=== PATIENT | male | born 1955 | race Caucasian/White ===

== ENCOUNTER 2021-02-22 12:15 | Emergency (ER) | payer BC ==
[2021-02-22] MEDS ORDERED: Midazolam 1 MG/ML 2 ML SDV IV ONE (12:16)
[2021-02-22] MEDS ORDERED: Rocuronium 100 MG/10 ML MDV IV ONE (12:16)
[2021-02-22] MEDS ORDERED: Succinylcholine 200 MG/10 ML MDV IV ONE (12:16)
[2021-02-22] MEDS ORDERED: Propofol 200 MG/20 ML SDV IV ONE (12:16)
[2021-02-22] MEDS ORDERED: Sodium Chloride 0.9% 10 ML Syringe FLUSH PRN (12:24)
[2021-02-22] MEDS ORDERED: Sodium Chloride 0.9% 1,000 ML IV SCH ×2 (12:30→14:15)
[2021-02-22] MEDS ORDERED: Midazolam 1 MG/ML 2 ML SDV ONE (12:47)
--- NOTE | 2021-02-22 13:03 | EDM.PDOC ---
ED HPI GENERAL MEDICAL PROBLEM - General Stated Complaint: FALL , SOB Time Seen by Provider: 02/22/21 12:15 Source of Information: Reports: EMS, Family - History of Present Illness INITIAL COMMENTS - FREE TEXT/NARRATIVE: patient is a 65 YO WM who was diagnosed with Covid 19 7 days ago presented to the ED via EMS because of a fall and unresponsive episode. doesn't exactly know for how long he was on the floor. Patient remembered that he was feeling weak, fell on the floor and can't get up so the called 911. Upon EMS arrival at the scene patient was cyanotic, hypoxemic with oxygen saturation of 70's. He was immediately put on a NRB and eventually on CPAP. Upon his arrival in the ED he in respiratory distress and subsequently intubated. - Related Data Allergies Allergy/AdvReac Type Severity Reaction Status Date / Time loratadine [From Claritin] Allergy Blisters Verified 02/22/21 13:01 Home Meds: Home Meds Acetaminophen/oxyCODONE [Percocet 325-5 MG] 1 each PO Q6HR PRN 09/25/14 [History] Calcium Carbonate/Vitamin D3 [Calcium 600-Vit D3 800 Tablet] 1 each PO DAILY 09/25/14 [History] Lisinopril 10 mg PO DAILY 09/25/14 [History] Mometasone Furoate [Elocon 0.1% Crm] 1 applic TOP DAILY PRN 09/25/14 [History] Pravastatin [Pravachol] 10 mg PO DAILY 09/25/14 [History] Pregabalin [Lyrica] 150 mg PO TID 09/25/14 [History] SitaGLIPtin [Januvia] 100 mg PO DAILY 09/25/14 [History] metFORMIN [Glucophage] 1,000 mg PO BIDMEALS 09/25/14 [History] Insulin Detemir [Levemir] 22 unit SUBCUT BEDTIME 03/06/15 [History] Meloxicam [Mobic] 15 mg PO DAILY 03/06/15 [History] Pantoprazole Sodium [Protonix] 40 mg PO DAILY 03/06/15 [History] diphenhydrAMINE [Benadryl] 25 mg PO Q6H PRN 03/06/15 [History] oxyCODONE HCl/Acetaminophen [Percocet 5-325 mg Tablet] 1 each PO ASDIRECTED PRN 03/06/15 [History] Past Medical History Other Dermatologic History: SKIN ALLERGIES ED ROS GENERAL - Review of Systems Review Of Systems: See Below Reason Not Obtained: Unresponsive Constitutional: Reports: No Symptoms HEENT: Reports: No Symptoms Respiratory: Reports: Shortness of Breath Cardiovascular: Reports: No Symptoms Endocrine: Reports: No Symptoms GI/Abdominal: Reports: No Symptoms : Reports: No Symptoms Musculoskeletal: Reports: No Symptoms Skin: Reports: No Symptoms Neurological: Reports: No Symptoms Psychiatric: Reports: No Symptoms ED EXAM, GENERAL - Physical Exam Exam: See Below Exam Limited By: Altered Mental Status General Appearance: Obtunded Ears: Normal External Exam, Normal Canal, Hearing Grossly Normal, Normal TMs Nose: Normal Inspection, Normal Mucosa, No Blood Throat/Mouth: Normal Inspection, Normal Lips, Normal Teeth, Normal Gums Head: Atraumatic, Normocephalic Neck: Normal Inspection, Supple, Non-Tender, Full Range of Motion Respiratory/Chest: Lungs Clear, Respiratory Distress, Decreased Breath Sounds, Rhonchi Cardiovascular: Normal Peripheral Pulses, Regular Rate, Rhythm, No Edema, No Gallop, No JVD, No Murmur GI/Abdominal: Normal Bowel Sounds, Soft, Non-Tender, No Organomegaly, No Distention, No Abnormal Bruit Back Exam: Normal Inspection, Full Range of Motion Extremities: Normal Inspection, Normal Range of Motion, Non-Tender, No Pedal Edema, Normal Capillary Refill Neurological: Alert, Oriented, CN II-XII Intact, Normal Cognition, Normal Reflexes, No Motor/Sensory Deficits Psychiatric: Normal Affect, Normal Mood Skin Exam: Warm #1 Interpretation EKG Date: 02/22/21 Time: 12:52 Rhythm: NSR Rate (Beats/Min): 74 [place]: Normal P-Wave: Present QRS: Normal ST-T: Normal QT: Normal NE/PQ Interval: 158 Comparison: NA - No Prior EKG EKG Interpretation Comments: NSR Non-specific ST and T wave changes Course - Vital Signs Text/Narrative:: Lab/EKG/CXR was reviewed See DUTY MANAGER's note for details on intubation informed of patient's condition [place] Sodium bicarb 8.4 % 50 ml IV x1 Last Recorded V/S: Last Vital Signs Temp 32.0 C L 02/22/21 12:15 Pulse 76 10/26/21 12:15 Resp 22 H 02/22/21 12:15 BP 121/68 02/22/21 12:15 Pulse Ox 87 L 02/22/21 12:15 - Orders/Labs/Meds Orders: Active Orders 24 hr Category Date Time Status Saline Lock Insert [OM.PC] Routine Oth 02/22/21 12:24 Ordered EKG 12 Lead [EK] Routine Ther 02/22/21 12:24 Ordered Labs: Laboratory Tests 02/22/21 02/22/21 02/22/21 Range/Units 12:40 12:40 12:40 WBC 16.9 H (3.2-10.1) x10-3/uL RBC 6.13 H (3.90-5.90) x10(6)uL Hgb 16.2 (12.9-17.7) g/dL Hct 51.0 H (38.3-50.1) % MCV 83.1 (80.8-98.7) fL MCH 26.4 L (27.0-33.3) pg MCHC 31.8 (28.7-35.3) g/dL RDW 15.1 H (12.4-15.0) % Plt Count 307 (117-477) x10(3)uL MPV 8.3 (6.7-11.0) fL Add Manual Diff Yes Neutrophils % (Manual) 81 (46-82) % Band Neutrophils % 6 (0-6) % Lymphocytes % (Manual) 9 L (13-37) % Monocytes % (Manual) 4 (4-12) % PT 16.4 H (9.0-11.1) sec INR 1.57 H (1.00-1.24) APTT 45.8 H (24.4-33.2) SECONDS POC VBG pH (7.32-7.43) pH Units POC VBG pCO2 (41-51) mmHg POC VBG HCO3 (22-29) mmol/L VBG Base Excess (-2 - 3+) mmol/L O2 Delivery Device Oxygen Flow Rate LPM Sodium 125 L (135-145) mmol/L Potassium 4.2 (3.5-5.3) mmol/L Chloride 88 L* (100-110) mmol/L Carbon Dioxide 10 L* (21-32) mmol/L BUN 57 H (7-18) mg/dL Creatinine 2.1 H* (0.70-1.30) mg/dL Est Cr Clr Drug Dosing TNP Estimated GFR (MDRD) 32 L (>60) BUN/Creatinine Ratio 27.1 H (9-20) Glucose 445 H* (80-116) mg/dL Lactic Acid (0.4-2.0) mmol/L Calcium 7.9 L (8.6-10.2) mg/dL Total Bilirubin 0.6 (0.1-1.3) mg/dL AST 85 H (5-25) IU/L ALT 39 H (12-36) U/L Alkaline Phosphatase 97 (56-112) IU/L Troponin I (4.0-60.3) pg/mL NT-Pro-B Natriuret Pep (<=125) pg/mL Total Protein 6.6 (6.0-8.0) g/dL Albumin 2.6 L (3.2-4.6) g/dL Globulin 4.0 g/dL Albumin/Globulin Ratio 0.7 Urine Color (YELLOW) Urine Appearance (CLEAR) Urine pH (5.0-6.5) Ur Specific [place] (1.010-1.025) Urine Protein (NEGATIVE) mg/dL Urine Glucose (UA) (NORMAL) mg/dL Urine Ketones (NEGATIVE) mg/dL Urine Occult Blood (NEGATIVE) Urine Nitrite (NEGATIVE) Urine Bilirubin (NEGATIVE) Urine Urobilinogen (NEGATIVE) mg/dL Ur Leukocyte Esterase (NEGATIVE) Urine RBC (0-5) Urine WBC (0-5) Ur Squamous Epith Cells (NS,R,O) Urine Bacteria (NS) Coarse Granular Casts (NS) 02/22/21 02/22/21 02/22/21 Range/Units 12:40 12:40 12:40 WBC (3.2-10.1) x10-3/uL RBC (3.90-5.90) x10(6)uL Hgb (12.9-17.7) g/dL Hct (38.3-50.1) % MCV (80.8-98.7) fL MCH (27.0-33.3) pg MCHC (28.7-35.3) g/dL RDW (12.4-15.0) % Plt Count (117-477) x10(3)uL MPV (6.7-11.0) fL Add Manual Diff Neutrophils % (Manual) (46-82) % Band Neutrophils % (0-6) % Lymphocytes % (Manual) (13-37) % Monocytes % (Manual) (4-12) % PT (9.0-11.1) sec INR (1.00-1.24) APTT (24.4-33.2) SECONDS POC VBG pH 6.98 L* (7.32-7.43) pH Units POC VBG pCO2 35 L (41-51) mmHg POC VBG HCO3 8 L (22-29) mmol/L VBG Base Excess -23 L (-2 - 3+) mmol/L O2 Delivery Device Cpap Oxygen Flow Rate 0 LPM Sodium (135-145) mmol/L Potassium (3.5-5.3) mmol/L Chloride (100-110) mmol/L Carbon Dioxide (21-32) mmol/L BUN (7-18) mg/dL Creatinine (0.70-1.30) mg/dL Est Cr Clr Drug Dosing Estimated GFR (MDRD) (>60) BUN/Creatinine Ratio (9-20) Glucose (80-116) mg/dL Lactic Acid 2.4 H* (0.4-2.0) mmol/L Calcium (8.6-10.2) mg/dL Total Bilirubin (0.1-1.3) mg/dL AST (5-25) IU/L ALT (12-36) U/L Alkaline Phosphatase (56-112) IU/L Troponin I 19.3 (4.0-60.3) pg/mL NT-Pro-B Natriuret Pep 223 H (<=125) pg/mL Total Protein (6.0-8.0) g/dL Albumin (3.2-4.6) g/dL Globulin g/dL Albumin/Globulin Ratio Urine Color (YELLOW) Urine Appearance (CLEAR) Urine pH (5.0-6.5) Ur Specific [place] (1.010-1.025) Urine Protein (NEGATIVE) mg/dL Urine Glucose (UA) (NORMAL) mg/dL Urine Ketones (NEGATIVE) mg/dL Urine Occult Blood (NEGATIVE) Urine Nitrite (NEGATIVE) Urine Bilirubin (NEGATIVE) Urine Urobilinogen (NEGATIVE) mg/dL Ur Leukocyte Esterase (NEGATIVE) Urine RBC (0-5) Urine WBC (0-5) Ur Squamous Epith Cells (NS,R,O) Urine Bacteria (NS) Coarse Granular Casts (NS) 02/22/21 Range/Units 13:40 WBC (3.2-10.1) x10-3/uL RBC (3.90-5.90) x10(6)uL Hgb (12.9-17.7) g/dL Hct (38.3-50.1) % MCV (80.8-98.7) fL MCH (27.0-33.3) pg MCHC (28.7-35.3) g/dL RDW (12.4-15.0) % Plt Count (117-477) x10(3)uL MPV (6.7-11.0) fL Add Manual Diff Neutrophils % (Manual) (46-82) % Band Neutrophils % (0-6) % Lymphocytes % (Manual) (13-37) % Monocytes % (Manual) (4-12) % PT (9.0-11.1) sec INR (1.00-1.24) APTT (24.4-33.2) SECONDS POC VBG pH (7.32-7.43) pH Units POC VBG pCO2 (41-51) mmHg POC VBG HCO3 (22-29) mmol/L VBG Base Excess (-2 - 3+) mmol/L O2 Delivery Device Oxygen Flow Rate LPM Sodium (135-145) mmol/L Potassium (3.5-5.3) mmol/L Chloride (100-110) mmol/L Carbon Dioxide (21-32) mmol/L BUN (7-18) mg/dL Creatinine (0.70-1.30) mg/dL Est Cr Clr Drug Dosing Estimated GFR (MDRD) (>60) BUN/Creatinine Ratio (9-20) Glucose (80-116) mg/dL Lactic Acid (0.4-2.0) mmol/L Calcium (8.6-10.2) mg/dL Total Bilirubin (0.1-1.3) mg/dL AST (5-25) IU/L ALT (12-36) U/L Alkaline Phosphatase (56-112) IU/L Troponin I (4.0-60.3) pg/mL NT-Pro-B Natriuret Pep (<=125) pg/mL Total Protein (6.0-8.0) g/dL Albumin (3.2-4.6) g/dL Globulin g/dL Albumin/Globulin Ratio Urine Color Yellow (YELLOW) Urine Appearance Slightly cloudy (CLEAR) Urine pH 5.0 (5.0-6.5) Ur Specific [place] 1.030 H (1.010-1.025) Urine Protein 100 H (NEGATIVE) mg/dL Urine Glucose (UA) >1000 H (NORMAL) mg/dL Urine Ketones 50 H (NEGATIVE) mg/dL Urine Occult Blood Large H (NEGATIVE) Urine Nitrite Negative (NEGATIVE) Urine Bilirubin Negative (NEGATIVE) Urine Urobilinogen Normal (NEGATIVE) mg/dL Ur Leukocyte Esterase Negative (NEGATIVE) Urine RBC 0-5 (0-5) Urine WBC 0-5 (0-5) Ur Squamous Epith Cells Occasional (NS,R,O) Urine Bacteria Few H (NS) Coarse Granular Casts Few H (NS) Meds: Medications Discontinued Medications Generic Name Dose Route Start Last Admin Trade Name Obiq PRN Reason Stop Dose Admin Sodium Chloride 1,000 mls @ 999 mls/hr 02/22/21 12:30 02/22/21 12:30 Normal Saline IV 999 mls/hr ASDIRECTED VIC Administration Sodium Chloride 1,000 mls @ 125 mls/hr 02/22/21 14:15 02/22/21 13:33 Normal Saline IV 125 mls/hr ASDIRECTED VIC Administration Midazolam HCl Confirm 02/22/21 12:47 02/22/21 14:13 Midazolam 1 Mg/Ml 2 Ml Sdv Administered 02/22/21 12:48 Not Given Dose 2 mg .ROUTE .STK-MED ONE Midazolam HCl 2 mg 02/22/21 12:16 Midazolam 1 Mg/Ml 2 Ml Sdv IV 02/22/21 12:17 .STK-MED ONE Propofol 300 mg 02/22/21 12:16 Propofol 200 Mg/20 Ml Sdv IV 02/22/21 12:17 .STK-MED ONE Rocuronium [place] 50 mg 02/22/21 12:16 Rocuronium 100 Mg/10 Ml Mdv IV 02/22/21 12:17 .STK-MED ONE Sodium Bicarbonate 50 meq 02/22/21 13:16 02/22/21 13:19 Sodium Bicarbonate 8.4% 50 Meq/50 Ml Syringe IVPUSH 02/22/21 13:17 50 meq NOW STA Administration Sodium Chloride 10 ml 02/22/21 12:24 Sodium Chloride 0.9% 10 Ml Syringe FLUSH ASDIRECTED PRN Keep Vein Open Succinylcholine Chloride 140 mg 02/22/21 12:16 Succinylcholine 200 Mg/10 Ml Mdv IV 02/22/21 12:17 .STK-MED ONE Departure - Departure Time of Disposition: 12:00 Disposition: DC/Tfer to Acute Hospital 02 Condition: Good Clinical Impression: COVID-19, Respiratory failure, Fall - Discharge Information Sepsis Event Note (ED) - Focused Exam Vital Signs: Vital Signs Temp Pulse Resp BP Pulse Ox 02/22/21 12:15 32.0 C L 76 22 H 121/68 87 L - My Orders Last 24 Hours: My Active Orders 02/22/21 12:24 Saline Lock Insert [OM.PC] Routine EKG 12 Lead [EK] Routine - Assessment/Plan Last 24 Hours: My Active Orders 02/22/21 12:24 Saline Lock Insert [OM.PC] Routine EKG 12 Lead [EK] Routine
[2021-02-22 13:04] VITALS: BP 121/68; PULSE 76
[2021-02-22] MEDS ORDERED: Sodium Bicarbonate 8.4% 50 MEQ/50 ML Syringe IVPUSH STA (13:16)
[2021-02-22 13:17] LABS: PH VENOUS,POC 6.98 pH Units (7.32-7.43)
[2021-02-22 13:18] LABS: BASE EXCESS VENOUS,POC -23 mmol/L (-2 - 3+); PCO2 VENOUS,POC 35 mmHg (41-51)
--- NOTE | 2021-02-22 15:00 | PCM.SN.2 ---
- Free Text/Narrative Note: ANESTHESIA SERVICES Date: 02/22/2021 Time:1203 to 1331 Procedures: Intubation [52109] Ventilation Assist and Management [[id number]] Anesthesia for Access to Central Venous Circulation [01803] Dx: I was called to the ED for a Rapid Response. A 65 y.o. male with a current Dx of Covid 19 2 days ago, was cyanotic, hypoxemic [SpO2 < 75%] and hypothermic. The ED physician immediately requested intubation and management assistance. Intubation: The patient denies breakfast today but extreme SOB. After preoxygenation for several minutes using CPAP, I gave Propofol 100 mg's and Succinylcholine 140 mg's IV. I rapidly intubated him using a GlideScope #3 and #8.0 ETT times one attempt. I had a positive EtCO2 return, bilateral breath sounds equal and later confirmed by a CXR. I did give him another dose of Propofol 100 mg's divide dosage later. The ETT was secured and his eyes taped shut. Ventilation Management: I did placed him on a ventilator using various settings. I did sedate him with more Propofol totaling 100 mg's [300 total] and 2 mg's of Versed IV that the RN got for me. I monitored his EtCO2, vital signs, SpO2, and breath sounds. I switched him from Volume control [after intubation] to Synchronized Intermittent Mandatory Ventilation with a TV 600 RR 10 FiO2 1.0 PEEP 5 and Pressure Support of 5. He was over breathing the ventilator with EtCO2 in the low 20's. Eventually, I did give him 50 mg's of Zemuron IV and placed him on Volume Control RR of 12. His EtCO2 dunia to 25. His HR and BP were stable throughout this. Central Venous Access: We required large venous access for lab work and medications. I prepped his left base of the neck with alcohol wipes. Using a BD Insyte Auto Guard BC Winged 18 Ga. X 1.16 In. catheter, I inserted this 1.5 cm above the base of his neck into an External Jugular Vein X 1 attempt. I advanced it easily and bryson off blood for lab. I placed an Op-Site dressing and tape on it with a Hep-lock extension. I flushed it with 10 ml's of normal saline. No complications noted per CXR. I handed over patient care to the Sterile Processing Technician for transfer to [place]. Please see all vital signs and information in the nursing documentation. Hosea Moore CRNA, A Time Documentation
--- NOTE | 2021-02-22 16:05 | CR ---
CHEST ONE VIEW INDICATION: Dyspnea, COVID positive Sunday. FINDINGS: Portable supine view of the chest was obtained and revealed an endotracheal tube in place with its tip approximately 2 cm above the kasey. Bilateral fluffy focal areas of infiltrate are noted without evidence of pleural effusion. The appearance would be compatible with COVID-19 pneumonia - correlate clinically. The heart is normal in size. The aorta is tortuous. Overlying EKG leads are noted. IMPRESSION: 1. Endotracheal tube approximately 2 cm from the kasey. 2. Bilateral infiltration compatible with COVID-19 pneumonia - correlate clinically. 3. ASD aorta. MTDD
== END 2021-02-22 13:35 ==
LOC: FB.ED 12:15
DX: U07.1 COVID-19 (principal); J96.90 Respiratory failure, unspecified, unspecified whether with hypoxia or hypercapnia; Z88.8 Allergy status to other drugs, medicaments and biological substances
CPT/HCPCS: 00532; 31500; 36415; 36556; 51702; 71045; 80053; 81001; 83605; 83880; 84484; 85025; 85610; 85730; 93005; 96374; 99285; J0330; J2250; J2704; J7030